=== PATIENT | male | born 1940 | race Caucasian/White ===

== ENCOUNTER → 2018-02-03 | Outpatient (CLI) | payer MEDICARE, OTHER ==
--- NOTE | 2018-02-04 06:36 | MRI ---
EXAM DESCRIPTION: Cervical Spine: MRI. CLINICAL HISTORY: STENOSIS COMPARISON: None. TECHNIQUE: Multiplanar MRI, multiple sequences, non-contrast High-field. FINDINGS: C3-4: Disc desiccation. No posterior bulging. Left uncinate spur and left facet arthrosis resulting in neural foraminal stenosis. Canal and right neuroforamen are patent. Right facet unremarkable. C4-5: Disc desiccation and anterior endplate ridging. Minimal disc space loss. Mild right facet arthrosis and moderate left facet arthrosis. Moderate right neural foraminal narrowing and borderline left neural foraminal stenosis. Flavum ligament hypertrophy and tiny disc bulge resulting in moderate canal narrowing. C5-6: Moderate disc space loss and disc desiccation. Anterior disc bulge with endplate ridging. Posterior broad-based disc osteophyte bulge abutting the cord. Posterior flavum ligament hypertrophy with moderate canal narrowing. Bilateral facet arthrosis and uncinate spurs causing bilateral neural foraminal stenosis. C6-7: Disc desiccation with anterior bulging and endplate ridging. Posterior disc space loss. Posterior broad-based disc osteophyte bulge abutting the cord. Bilateral disc bulge and uncinate spurs with right neural foraminal stenosis and moderate to severe left neural foraminal narrowing. C7-T1: Trace anterolisthesis. Tiny posterior bulge of the desiccated disc. Minimal anterior bulging. Posterior ligament hypertrophy with narrowing of the canal. Bilateral neural foramina are patent. Normal signal in the remaining discs with no bulging. Disc spaces preserved. Canal and neural foramina are patent. Facets are unremarkable. No scoliosis. Spine is minimally lordotic. No cord compression or cord edema. Atlantoaxial joint is minimal hypertrophy. Base of the cerebellar tonsils is above the foramen magnum. Paravertebral soft tissues unremarkable.. Vertebral bodies are not compressed at any level. Normal marrow signal in the remaining vertebral bodies and the posterior elements. IMPRESSION: 1. Levels of disc degeneration, disc space spondylosis, facet arthrosis and flavum ligament hypertrophy. 2. C3-4 left neural foraminal stenosis. Correlate for left C4 radiculopathy. 3. Borderline left neural foraminal stenosis at C4-5. Correlate for left C5 radiculopathy. 4. Bilateral neural foraminal stenosis at C5-6. Correlate for bilateral C6 radiculopathy. 5. Right neural foraminal stenosis at C6-7 and severe left neural foraminal narrowing. Correlate for bilateral C7 radiculopathy. Electronically signed by: Surya Samuels MD 02/04/2018 6:34 AM CDT
== END ==
LOC: MRI 10:49
PROVIDERS: ATTEND Internal Medicine
DX: M48.02 Spinal stenosis, cervical region (principal)

== ENCOUNTER → 2018-02-15 | Outpatient (CLI) | payer MEDICARE, OTHER ==
--- NOTE | 2018-02-16 08:54 | CT ---
EXAM DESCRIPTION: Cervical Spine: Computed Tomography. CLINICAL HISTORY: CERVICAL MYOPATHY COMPARISON: MRI cervical spine 02/03/2018. TECHNIQUE: Spiral, axial 2.5 mm scans through the cervical spine without contrast. Coronal and sagittal 2.0 mm Reconstructions. Total Exam DLP: 496.86 mGy-cm. This exam was performed according to our departmental dose-optimization program which includes automated exposure control, adjustment of the mA and/or kV according to patient size and/or use of iterative reconstruction technique; to reduce radiation dose to as low as reasonably achievable (ALARA). FINDINGS: Moderate arthrosis atlantoaxial joint. Hypertrophic bone formation. C1-C2 facets are negative. Minimal arthrosis bilateral atlantooccipital joints. No fractures. Vascular calcifications in the vertebral basilar system. C2-C3: Posterior mild midline bulging. Minimal arthrosis left facet. Mild neural foraminal narrowing. No fractures. C3-C4: Trace anterolisthesis. No posterior disc bulging. Minimal anterior ridging. Canal narrowing. Moderate arthrosis left facet with left neural foraminal stenosis. Left uncinate spur. Mild narrowing of the right neural foramen. No fractures. C4-C5: Trace anterolisthesis. Anterior disc bulge with large anterior osteophytes. Mild canal narrowing. Bilateral uncinate spurs. Marked arthrosis left facet with left neural foraminal stenosis. Mild narrowing of the right neural foramen. No fracture. C5-C6: Moderate diffuse disc space narrowing with anterior endplate spurs and bulging disc. Calcification of the posterior bulging disc with disc osteophyte complex abutting the cord and moderate canal narrowing. Bilateral uncinate spurs and bilateral facet arthrosis resulting in bilateral neural foraminal stenosis. No fractures. C6-C7: Diffuse disc space loss and moderate with anterior endplate ridging and bulging disc. Posterior disc osteophyte complex 3 mm bulge abutting the cord, more to the right. Bilateral uncinate spurs larger on the right. Neural foraminal stenosis. Moderate narrowing left neural foramen. Mild facet arthrosis bilaterally. No fractures. C7-T1: disc space minimal narrowing with anterior bulging and endplate ridging. Trace anterolisthesis. Tiny midline posterior bulge. Mild right facet arthrosis. No uncinate spurs. Bilateral neural foramina are patent. No fractures. T1-T2: Anterior disc bulge with calcification. Moderate right neural foraminal narrowing. No fractures. Mild dextroscoliosis. No compression type vertebral body fractures. Included neck soft tissues demonstrate no gross soft tissue mass. Possible 1 cm nodules bilateral thyroid gland. Included lungs are unremarkable. IMPRESSION: 1. Multiple levels of disc space narrowing and anterior and posterior disc osteophyte bulging. Most notable C4-5, C5-6, and C6-7. 2. Neural foraminal stenosis on the left at C3-4 and C4-5 bilateral C5-C6 and on the right at C6-7. 3. Multiple levels of facet arthrosis and uncinate spur which are associated with neural foraminal stenosis. Correlate for radiculopathy at these levels. Electronically signed by: Surya Samuels MD 02/16/2018 8:53 AM CDT
== END ==
LOC: CT 10:30
PROVIDERS: ATTEND Internal Medicine
DX: G95.9 Disease of spinal cord, unspecified (principal)

== ENCOUNTER 2019-10-09 21:29 | Emergency (ER) | payer MEDICARE, OTHER ==
[2019-10-09] MEDS ORDERED: MECLIZINE HCL 12.5 MG TAB PO ONE (21:51)
--- NOTE | 2019-10-09 22:39 | ED.PDOC ---
History of Present Illness - General Chief Complaint: Neuro Symptoms/Deficits Stated Complaint: dizziness Time Seen by Provider: 10/09/19 21:50 Source: patient, RN notes reviewed, Vital Signs reviewed Exam Limitations: no limitations - History of Present Illness Initial Comments: Patient is a 78-year-old white male who presents with complaints of dizziness (vertigo) starting this evening. 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 Patient has been putting eardrops in his ears and they cause his ears to pop and make noise. He is noticed some generalized wobbliness in his walk for the last couple of days but acutely became much worse this evening. The symptoms were severe. There was no pain associated with them. Worse with standing and trying to walk and when lying down. Most notably worsened as he moved positions. Only improved with staying still. Patient denies any headache, blurry vision, nausea, vomiting, diarrhea, chest pain, shortness of breath. Timing/Duration: 1-3 hours Severity: severe Improving Factors: rest Worsening Factors: movement Associated Symptoms: denies symptoms Allergies/Adverse Reactions: Allergies NO KNOWN ALLERGY Allergy (Verified 05/12/18 02:02) Home Medications: Ambulatory Orders ALPRAZolam [Xanax] 0.5 mg PO BEDTIME PRN 05/12/18 Aspirin [Aspirin Adult Low Dose] 81 mg PO BEDTIME 05/12/18 Atorvastatin Calcium [Lipitor] 40 mg PO DAILY 05/12/18 Cetirizine HCl [Zyrtec] 10 mg PO DAILY 05/12/18 Dexlansoprazole [Dexilant] 1 each PO BEDTIME 05/12/18 Fluticasone Prop 0.05% Nasal [Flonase Nasal Bypro] 1 spray BNAS DAILY 05/12/18 Lisinopril 20 mg PO BEDTIME 05/12/18 Lubiprostone [Amitiza] 24 mcg PO BID 05/12/18 Meclizine HCl 25 mg PO TID #21 tab 10/09/19 Review of Systems - Review of Systems Constitutional: States: no symptoms reported, see HPI EENTM: States: see HPI, ear discharge. Denies: ear pain Respiratory: States: no symptoms reported Cardiology: States: no symptoms reported Gastrointestinal/Abdominal: States: no symptoms reported Genitourinary: States: no symptoms reported Musculoskeletal: States: no symptoms reported Skin: States: no symptoms reported Neurological: States: other - Dizziness Endocrine: States: no symptoms reported Hematologic/Lymphatic: States: no symptoms reported All other Systems: Reviewed and Negative Past Medical History (General) - Patient Medical History Hx Seizures: No Hx Stroke: No Hx Dementia: No Hx Asthma: No Hx of COPD: No Hx Cardiac Disorders: Yes - VT 2018 Hx Congestive Heart Failure: No Hx Pacemaker: No Hx Hypertension: Yes Hx Thyroid Disease: No Hx Diabetes: No Hx Gastroesophageal Reflux: Yes Hx Renal Disease: No Hx Cancer: Yes - hx of skin cancer, Hx of HIV: No Hx Hepatitis C: No Hx MRSA: No Surgical History: other - Vaccination History Hx Tetanus, Diphtheria Vaccination: No Hx Influenza Vaccination: Yes Hx Pneumococcal Vaccination: No Immunizations Up to Date: Yes - Social History Hx Tobacco Use: No Hx Chewing Tobacco Use: No Hx Alcohol Use: No Hx Substance Use: No Hx Substance Use Treatment: No Hx Depression: No Feels Threatened In Home Enviroment: No Feels Threatened In a Relationship: No Hx Physical Abuse: No Hx Emotional Abuse: No Hx Suspected Abuse: No - Activities of Daily Living Hospice Agency (if applicable):: None - Female History Patient is a Female of Child Bearing Age (10 -59 yrs old): No Patient : No Family Medical History - Family History Mother Living Status: Hx Cardiac Disease: Yes Father Living Status: Hx Cardiac Disease: Yes Physical Exam - Physical Exam General Appearance: Alert, Comfortable, Well Developed, Well Groomed, Well Hydrated, Well Nourished Eye Exam: bilateral normal ENT Exam: other Neck: non-tender, full range of motion, supple, normal inspection Respiratory: chest non-tender, lungs clear, normal breath sounds, no respiratory distress Cardiovascular/Chest: normal peripheral pulses, regular rate, rhythm, no edema, no gallop, no JVD, no murmur Peripheral Pulses: radial,right: 2+, radial,left: 2+ Gastrointestinal/Abdominal: normal bowel sounds, non tender, soft, no organomegaly, no pulsatile mass Back Exam: normal inspection, no CVA tenderness, no vertebral tenderness Extremities Exam: non-tender, normal range of motion, no evidence of injury Mental Status: alert, oriented x 3 chaplain Exam: normal speech, PERRL, other - Patient is hard of hearing Coordination/Gait: normal gait - Patient's gait became normal after the meclizine. Prior to that he had some unsteady gait. Motor/Sensory: no motor deficit, no sensory deficit, no pronator drift Skin Exam: normal color, warm/dry Progress - Progress Progress: Differential diagnosis: CVA, TIA, vertigo, otitis externa among others. 10/09/19 22:55 Patient symptoms completely resolved after the meclizine. I believe that he has benign positional vertigo. Plan on discharge home with a prescription for meclizine and follow-up with his ENT doctor in [place]. I discussed this plan of care with the patient he voices understanding and agreement. Jj Brandon M.D. #[id number] - EKG/XRAY/CT CT Ordered: No Departure - Departure Clinical Impression: Benign paroxysmal positional vertigo Qualifiers: Laterality: unspecified laterality Qualified Code(s): H81.10 - Benign paroxysmal vertigo, unspecified ear Time of Disposition: 22:56 Disposition: Discharge to Home or Self Care Condition: Good Departure Forms: ED Discharge - Pt. Copy, Patient Portal Self Enrollment Instructions: Vertigo (a Type of Dizziness) (DC) Prescriptions: Meclizine HCl 25 mg PO TID #21 tab Home Medications: Ambulatory Orders ALPRAZolam [Xanax] 0.5 mg PO BEDTIME PRN 05/12/18 Aspirin [Aspirin Adult Low Dose] 81 mg PO BEDTIME 05/12/18 Atorvastatin Calcium [Lipitor] 40 mg PO DAILY 05/12/18 Cetirizine HCl [Zyrtec] 10 mg PO DAILY 05/12/18 Dexlansoprazole [Dexilant] 1 each PO BEDTIME 05/12/18 Fluticasone Prop 0.05% Nasal [Flonase Nasal Bypro] 1 spray BNAS DAILY 05/12/18 Lisinopril 20 mg PO BEDTIME 05/12/18 Lubiprostone [Amitiza] 24 mcg PO BID 05/12/18 Meclizine HCl 25 mg PO TID #21 tab 10/09/19 Additional Instructions: Follow-up with your ear nose and throat doctor in [place].
[2019-10-09 22:55] VITALS: O2SAT 96
[2019-10-09 23:21] VITALS: BP 95/56; TEMP 98.2
== END 2019-10-09 23:12 | disposition home or self-care (01) ==
LOC: ER 21:29
DX: H81.10 Benign paroxysmal vertigo, unspecified ear (principal); I45.10 Unspecified right bundle-branch block; B48.8 Other specified mycoses; I10 Essential (primary) hypertension; I25.2 Old myocardial infarction; Z85.828 Personal history of other malignant neoplasm of skin; Z79.82 Long term (current) use of aspirin; Z79.899 Other long term (current) drug therapy

== ENCOUNTER → 2020-02-26 | Outpatient (CLI) | payer MEDICARE, OTHER | LOC: GMA MATASK 11:30 | PROVIDERS: ATTEND Family Medicine | DX: Z12.5 Encounter for screening for malignant neoplasm of prostate (principal) ==

== ENCOUNTER 2020-03-27 07:01 | Day surgery (SDC) | payer MEDICARE, OTHER ==
[~2020-03-27 07:01] MED LIST: LACTATED RINGERS 1,000 ML ONE; LIDOCAINE 1% 10 ML VIAL INJ ONE; PROPOFOL 200 MG/20 ML VIAL IV ONE
[2020-03-27 10:22] VITALS: O2SAT 99
--- NOTE | 2020-03-27 13:08 | OP ---
DATE OF PROCEDURE: 03/27/20 PREOPERATIVE DIAGNOSIS: 1. Constipation. 2. Difficulty urinating. POSTOPERATIVE DIAGNOSIS: 1. Diverticulosis. PROCEDURE: 1. Colonoscopy. SURGEON: Kaushik Preston MD ANESTHESIA: General. FINDINGS: The patient had significant diverticulosis throughout the sigmoid colon, large, noninflamed diverticula, no bleeding. Mucosal surfaces were normal. No polyps were found. PROCEDURE: General anesthesia was induced in the lateral position. Digital rectal exam was normal. The colonoscope was inserted with little difficulty all the way to the cecum, identifying the terminal ileum and appendiceal orifice was not directly identified due to some stool and suction issues, but there was no evidence of polyps in the distal cecum. Upon withdrawal, no polyps were seen. Again, the sigmoid colon had significant diverticulosis. We did not retroflex, but there were small internal hemorrhoids. The patient stated it was believed his urinary overflow type incontinence and difficulty voiding might be related to colon, however, I identified no evidence of colonic inflammation or mass and no sign of pelvic fixation, etc. Overall, normal scope. He can followup with his primary care physician and urologist. #[id number] cc: Fili Phipps MD [facility]
[2020-03-27 13:21] VITALS: BP 126/76; TEMP 97
== END 2020-03-27 13:05 | disposition home or self-care (01) ==
LOC: AMB 07:01
PROVIDERS: ATTEND Surgery
DX: K59.00 Constipation, unspecified (principal); R39.198 Other difficulties with micturition; K57.30 Diverticulosis of large intestine without perforation or abscess without bleeding; K64.8 Other hemorrhoids; I10 Essential (primary) hypertension; I25.2 Old myocardial infarction; I25.10 Atherosclerotic heart disease of native coronary artery without angina pectoris; E78.00 Pure hypercholesterolemia, unspecified; Z88.8 Allergy status to other drugs, medicaments and biological substances; Z79.899 Other long term (current) drug therapy; Z79.82 Long term (current) use of aspirin
CPT/HCPCS: 00811; 36416; 45378; 82948; J3490; J7120

== ENCOUNTER → 2020-04-23 | Outpatient (CLI) | payer MEDICARE, OTHER | LOC: LAB.O 14:20 | PROVIDERS: ATTEND Urology | DX: R33.9 Retention of urine, unspecified (principal) ==

== ENCOUNTER → 2020-04-25 | Outpatient (CLI) | payer MEDICARE, OTHER ==
--- NOTE | 2020-04-25 14:43 | RAD ---
EXAM DESCRIPTION: Chest,2 Views CLINICAL HISTORY: 79 years Male, BENIGN PROSTATIC HYPERPLASIA WITH LOWER URINARY TRACT SYMPTOMS COMPARISON: May 11, 2018 FINDINGS: 2 views/radiographs Heart size and pulmonary vessels are within normal limits. There is no pneumothorax or pleural effusion. The lungs are clear bilaterally. The soft tissues are unremarkable. No acute osseous findings. IMPRESSION: No acute cardiopulmonary abnormality. Electronically signed by: Sabino Sanchez MD 04/25/2020 2:41 PM CDT
== END ==
LOC: LAB.O 08:49
PROVIDERS: ATTEND Urology
DX: Z01.818 Encounter for other preprocedural examination (principal); N40.1 Benign prostatic hyperplasia with lower urinary tract symptoms; N18.9 Chronic kidney disease, unspecified; R33.8 Other retention of urine

== ENCOUNTER → 2020-05-06 | Outpatient (CLI) | payer MEDICARE, OTHER | LOC: LAB.O 12:59 | PROVIDERS: ATTEND Urology | DX: Z01.818 Encounter for other preprocedural examination (principal); N40.1 Benign prostatic hyperplasia with lower urinary tract symptoms; N18.9 Chronic kidney disease, unspecified ==

== ENCOUNTER → 2020-10-22 | Outpatient (CLI) | payer MEDICARE, OTHER | LOC: YCFC.O 08:05 | PROVIDERS: ATTEND Family Medicine | DX: M62.81 Muscle weakness (generalized) (principal); R73.01 Impaired fasting glucose; E03.9 Hypothyroidism, unspecified; R53.83 Other fatigue; R20.9 Unspecified disturbances of skin sensation; E53.8 Deficiency of other specified B group vitamins ==